=== PATIENT | female | born 1945 | race Asian ===

== ENCOUNTER 2018-08-03 09:13 | Day surgery (SDC) | payer OTHER, MEDICARE ==
[2018-08-02 13:51] VITALS: BMI 26.2
[2018-08-03 10:27] VITALS: TEMP 97.9
[2018-08-03 12:36] VITALS: BP 146/43; PULSE 59
== END 2018-08-03 11:30 | disposition home or self-care (01) ==
LOC: JASU-ENDO 09:13
PROVIDERS: ATTEND Internal Medicine Gastroenterology
PROC: 0DJD8ZZ Inspection of Lower Intestinal Tract, Via Natural or Artificial Opening Endoscopic (ICD-10-PCS; principal; 2018-08-03 10:00)
DX: Z12.11 Encounter for screening for malignant neoplasm of colon (principal); Z86.010 Personal history of colon polyps; K64.8 Other hemorrhoids

== ENCOUNTER 2019-01-02 01:59 | Emergency (ER) | payer OTHER, MEDICARE ==
[2019-01-02 02:39] VITALS: BMI 27.1
--- NOTE | 2019-01-02 02:39 | PDOC ---
History of Present Illness - History of Present Illness Initial Comments: 01/02/19 02:46 Ms. Osborne is a 73 yo female w/ pmh of HTN, HLD, hypothyroidism, IDDM, current UTI (taking backtrim as of 12/27/18), prior heart arrythmia (w/ pacemaker), not on AC who presents for evaluation of L shoulder pain. Patient was rolling over in bed to check the time and did not realized how close she was to the bed. Fell to the bed and landed on her L shoulder. Denies any head injury or LOC. The patient denies chest pain, shortness of breath, headache and dizziness. Denies fever, chills, nausea, vomit, diarrhea and constipation. Denies dysuria, frequency, urgency and hematuria. <Alexandre Treadwell - Last Filed: 01/02/19 07:19> <Evin Dominguez - Last Filed: 01/02/19 09:14> - General Chief Complaint: Pain, Acute Stated Complaint: FALL/PAIN,LT SIDE Time Seen by Provider: 01/02/19 02:38 Past History - Past Medical History Anemia: No Asthma: No Cancer: No Cardiac Disorders: Yes (CT 2006,ASHD) CVA: No COPD: No CHF: No Dementia: No Diabetes: Yes (NIDDM) GI Disorders: Yes (GERD,POSSIBLE WOODS'S) Disorders: No HTN: Yes Hypercholesterolemia: Yes Liver Disease: No Seizures: No Thyroid Disease: Yes (HYPOTHYROIDISM) - Surgical History Abdominal Surgery: No Appendectomy: No Cardiac Surgery: Yes (CABG-2006) Cholecystectomy: No Lung Surgery: No Neurologic Surgery: No Orthopedic Surgery: No - Suicide/Smoking/Psychosocial Hx Smoking History: Never smoked Have you smoked in the past 12 months: No Hx Alcohol Use: No Drug/Substance Use Hx: No Substance Use Type: None Hx Substance Use Treatment: No <Alexandre Treadwell - Last Filed: 01/02/19 07:19> <Evin Dominguez - Last Filed: 01/02/19 09:14> - Past Medical History Allergies/Adverse Reactions: Allergies Allergy/AdvReac Type Severity Reaction Status Date / Time No Known Allergies Allergy Verified 01/02/19 02:39 Home Medications: Ambulatory Orders Amlodipine Besylate [Norvasc -] 5 mg PO DAILY 03/01/13 Aspirin [ASA -] 81 mg PO DAILY 11/23/12 Atorvastatin Ca [Lipitor] 20 mg PO HS 11/23/12 Carvedilol [Coreg] 25 mg PO DAILY 11/23/12 Levothyroxine [Synthroid -] 50 mcg PO DAILY 11/23/12 Losartan/Hydrochlorothiazide [Losartan-Hctz 100-25 mg Tab] 1 each PO DAILY 11/23 Lysine [l-Lysine] 500 mg PO DAILY 11/23/12 Multivitamin [Multivitamins] 1 each PO DAILY 11/23/12 Vit C/Echin Purp/Herb11 [Vitamin C-Echinacea 500 mg Tab] 500 mg PO DAILY Cyanocobalamin [Vitamin B12 -] 1,000 mcg PO DAILY 08/02/18 Glucosa Renee 2Kcl/Chondroitin Renee [Glucosamine & Chondroitin Cap] 1 each PO BID 05/12 Insulin Glargine,Hum.rec.anlog [Lantus (10mL VIAL) -] 22 units SQ DAILY Loratadine [Claritin] 1 tab PO DAILY 08/02/18 Magnesium Glycinate [Magnesium Bisglycinate Chelate] 43 mg PO DAILY 08/02/18 Ranitidine [Zantac -] 150 mg PO BID 08/02/18 metFORMIN HCL [Metformin ER Osmotic] 1,000 mg PO BID 08/02/18 Fluticasone Prop 0.05% Nasal [Flonase -] 1 - 2 spray NS DAILY 08/03/18 Losartan/Hydrochlorothiazide [Losartan-Hctz 100-25 mg Tab] 1 tab PO DAILY Tramadol HCl 50 mg PO BID #14 tablet MDD 3 01/02/19 Review of Systems - Review of Systems Comments:: 01/02/19 03:40 GENERAL/CONSTITUTIONAL: No fever or chills. No weakness. HEAD, EYES, EARS, NOSE AND THROAT: No change in vision. No ear pain or discharge. No sore throat. CARDIOVASCULAR: No chest pain or shortness of breath RESPIRATORY: No cough, wheezing, or hemoptysis. GASTROINTESTINAL: No nausea, vomiting, diarrhea or constipation. GENITOURINARY: No dysuria, frequency, or change in urination. MUSCULOSKELETAL: +L shoulder pain s/p fall SKIN: No rash NEUROLOGIC: No headache, vertigo, loss of consciousness, or change in strength/ sensation. ENDOCRINE: No increased thirst. No abnormal weight change HEMATOLOGIC/LYMPHATIC: No anemia, easy bleeding, or history of blood clots. ALLERGIC/IMMUNOLOGIC: No hives or skin allergy. <Alexandre Treadwell - Last Filed: 01/02/19 07:19> *Physical Exam - Physical Exam Comments: 01/02/19 03:40 GENERAL: Awake, alert, and fully oriented, in no acute distress HEAD: No signs of trauma, normocephalic, atraumatic EYES: PERRLA, EOMI, sclera anicteric, conjunctiva clear ENT: Auricles normal inspection, hearing grossly normal, nares patent, oropharynx clear without exudates. Moist mucosa NECK: Normal ROM, supple, no lymphadenopathy, JVD, or masses LUNGS: No distress, speaks full sentences, clear to auscultation bilaterally HEART: Regular rate and rhythm, normal S1 and S2, no murmurs, rubs or gallops, peripheral pulses normal and equal bilaterally. ABDOMEN: Soft, nontender, normoactive bowel sounds. No guarding, no rebound. No masses EXTREMITIES: +L shoulder TTP. Obvious L shoulder dislocation. Neurovascularly intact. NEUROLOGICAL: Cranial nerves II through XII grossly intact. Normal speech, normal gait, no focal sensorimotor deficits SKIN: Warm, Dry, normal turgor, no rashes or lesions noted. <Alexandre Treadwell - Last Filed: 01/02/19 07:19> - Vital Signs Last Vital Signs Temp Pulse Resp BP Pulse Ox 98.6 F 65 16 135/63 97 01/02/19 07:21 01/02/19 07:21 01/02/19 07:21 01/02/19 07:21 01/02/19 07:21 <Evin Dominguez - Last Filed: 01/02/19 09:14> ED Treatment Course - LABORATORY CBC & Chemistry Diagram: 01/02/19 03:38 01/02/19 05:48 <Alexandre Treadwell - Last Filed: 01/02/19 07:19> - LABORATORY CBC & Chemistry Diagram: 01/02/19 03:38 01/02/19 07:14 - ADDITIONAL ORDERS Additional order review: Laboratory Results 01/02/19 01/02/19 01/02/19 07:14 05:48 03:38 PT with INR INR PTT (Actin FS) Sodium 129 L 128 L Potassium 4.8 4.3 Chloride 96 L 96 L Carbon Dioxide 28 25 Anion Gap 5 L 7 L BUN 11 13 Creatinine 0.5 L 0.5 L Creat Clearance w eGFR 121.28 121.28 Random Glucose 177 H 170 H Calcium 8.0 L 7.9 L Total Bilirubin AST ALT Alkaline Phosphatase Total Protein Albumin Blood Type A POSITIVE Antibody Screen Negative 01/02/19 01/02/19 03:38 03:38 PT with INR 12.30 INR 1.04 PTT (Actin FS) 33.1 Sodium 148 H Potassium 5.5 H Chloride 108 H Carbon Dioxide 28 Anion Gap 13 BUN 13 Creatinine 0.6 Creat Clearance w eGFR 98.27 Random Glucose 174 H Calcium 8.2 L Total Bilirubin 0.3 AST 29 ALT 39 Alkaline Phosphatase 71 Total Protein 6.7 Albumin 3.6 Blood Type Antibody Screen 01/02/19 03:38 RBC 3.88 MCV 91.1 MCHC 33.5 RDW 14.3 MPV 8.6 Neutrophils % 67.1 Lymphocytes % 14.5 Monocytes % 7.6 Eosinophils % 9.6 H Basophils % 1.2 - Medications Given in the ED: ED Medications Discontinued Medications Generic Name Dose Route Start Last Admin Trade Name Freq PRN Reason Stop Dose Admin Acetaminophen 975 mg 01/02/19 02:49 01/02/19 02:53 Tylenol - PO 01/02/19 02:50 975 mg ONCE ONE Administration Sodium Chloride 1,000 mls @ 1,000 mls/hr 01/02/19 03:39 01/02/19 03:45 Normal Saline - IV 01/02/19 04:38 1,000 mls/hr ASDIR STA Administration Morphine Sulfate 4 mg 01/02/19 03:37 01/02/19 03:43 Morphine Injection - IVPUSH 01/02/19 03:38 4 mg ONCE ONE Administration Ondansetron HCl 4 mg 01/02/19 03:37 01/02/19 03:43 Zofran Injection IVPUSH 01/02/19 03:38 4 mg ONCE ONE Administration Oxycodone/Acetaminophen 1 combo 01/02/19 02:43 01/02/19 02:53 Percocet 5/325 - PO 01/02/19 02:44 Not Given ONCE ONE <Evin Dominguez - Last Filed: 01/02/19 09:14> Medical Decision Making - Medical Decision Making 01/02/19 04:25 Ms. Osborne is a 73 yo female w/ pmh as described who presents for evaluation of L shoulder pain. Patient noted to have fracture of surgical neck of L humerus on XR evaluation. Discussed patient with ortho PA who evaluated films and believes patient safe for discharge and outpatient evaluation on Monday. Patient pain controlled and medication sent to pharmacy for pain control. Patient laboratory evaluation significant for potassium change from 5.5 on initial labs to 4.3, and Sodium change from 148 to 128. Will repeat BMP for clarification of laboratory changes. 01/02/19 07:19 Patient signed out to Dr. Dominguez for further evaluation. Laboratory Results - last 24 hr 01/02/19 01/02/19 01/02/19 03:38 03:38 03:38 WBC 11.7 H RBC 3.88 Hgb 11.9 Hct 35.3 MCV 91.1 MCH 30.6 MCHC 33.5 RDW 14.3 Plt Count 204 MPV 8.6 Absolute Neuts (auto) 7.8 Neutrophils % 67.1 Lymphocytes % 14.5 Monocytes % 7.6 Eosinophils % 9.6 H Basophils % 1.2 Nucleated RBC % 0 PT with INR 12.30 INR 1.04 PTT (Actin FS) 33.1 Sodium 148 H Potassium 5.5 H Chloride 108 H Carbon Dioxide 28 Anion Gap 13 BUN 13 Creatinine 0.6 Creat Clearance w eGFR 98.27 Random Glucose 174 H Calcium 8.2 L Total Bilirubin 0.3 AST 29 ALT 39 Alkaline Phosphatase 71 Total Protein 6.7 Albumin 3.6 Blood Type Antibody Screen 01/02/19 01/02/19 03:38 05:48 WBC RBC Hgb Hct MCV MCH MCHC RDW Plt Count MPV Absolute Neuts (auto) Neutrophils % Lymphocytes % Monocytes % Eosinophils % Basophils % Nucleated RBC % PT with INR INR PTT (Actin FS) Sodium 128 L Potassium 4.3 Chloride 96 L Carbon Dioxide 25 Anion Gap 7 L BUN 13 Creatinine 0.5 L Creat Clearance w eGFR 121.28 Random Glucose 170 H Calcium 7.9 L Total Bilirubin AST ALT Alkaline Phosphatase Total Protein Albumin Blood Type A POSITIVE Antibody Screen Negative <Alexandre Treadwell - Last Filed: 01/02/19 07:19> - Medical Decision Making Patient endorsed to me by Dr. Stephens to follow-up CMP. Repeat CMP shows moderate hyponatremia. the patient reports she has a history of and is likely related to hydrochlorothiazide therapy and large intake of water. Discussed the risk and benefit of tramadol therapy for pain. Patient's family and patient informed. They agree its preferable to NSAIDs or Percocet. I contacted [facility] and the previously dispense Percocet prescription will be canceled. Patient will take acetaminophen for mild pain and tramadol for breakthrough pain. 01/02/19 09:06 <Evin Dominguez - Last Filed: 01/02/19 09:14> *DC/Admit/Observation/Transfer <Alexandre Treadwell - Last Filed: 01/02/19 07:19> <Evin Dominguez - Last Filed: 01/02/19 09:14> Diagnosis at time of Disposition: Hyponatremia Humeral fracture Qualifiers: Encounter type: initial encounter Humerus Location: surgical neck Fracture type : closed Fracture morphology: unspecified fracture morphology Fracture alignment : displaced Laterality: left Qualified Code(s): S42.212A - Unspecified displaced fracture of surgical neck of left humerus, initial encounter for closed fracture - Discharge Dispostion Disposition: HOME Condition at time of disposition: Stable - Prescriptions Prescriptions: Oxycodone HCl/Acetaminophen [Percocet 5-325 mg Tablet] 1 tab PO Q6H PRN #12 tablet MDD 4 tabs PRN Reason: Pain - Referrals Referrals: Sarthak Tran MD [Primary Care Provider] - Toney Pearl MD [Staff Physician] - - Patient Instructions Printed Discharge Instructions: How to Use a Sling, DI for Humeral Fracture Additional Instructions: You were evaluated today in the ER and found to have a fracture of your left humerus. We have sent medications to your pharmacy for pain control and you can follow-up outpatient with Dr. Pearl on Monday as discussed. Take all medications as proscribed. Please return to ER if any fever, chills, pain not controllable with proscribed medications, or other concerning symptoms. - Post Discharge Activity
[2019-01-02] MEDS ORDERED: ACETAMINOPHEN 325 MG TABLET (FP) ONE ×2 (02:49→02:50)
[2019-01-02] MEDS ORDERED: ACETAMINOPHEN 500 MG TABLET (FP) PO ONE (02:49)
--- NOTE | 2019-01-02 02:52 | PDOC ---
Attending Attestation - Resident Resident Name: Alexandre Treadwell - ED Attending Attestation I have performed the following: I have examined & evaluated the patient, The case was reviewed & discussed with the resident, I agree w/resident's findings & plan, Exceptions are as noted - HPI HPI: 01/02/19 05:12 The patient is a 73 year old female with a PMH of HTN, HLD, hypothyroidism, IDDM , current UTI (taking bactrim as of 12/27/18), prior heart arrhythmia (w/ pacemaker) who presents s/p fall prior to arrival. Patient states she was rolling over to check the time and subsequently fell off the bed. Patient sustained the fall on her left side and is now complaining of left shoulder pain. She denies any head trauma or loss of consciousness. Not currently on any anticoagulants. Was able to ambulate afterwards, complains only of L shoulder pain. The patient denies chest pain, shortness of breath, headache and dizziness. Denies fever, chills, nausea, vomit, diarrhea and constipation. Denies dysuria, frequency, urgency and hematuria. Allergies: NKA Past surgical history: s/p pacemaker Social history: No reported alcohol, drug or cigarette use. - Physicial Exam PE: 01/02/19 05:12 GENERAL: Awake, alert, and fully oriented, in no acute distress HEAD: No signs of trauma EYES: PERRLA, EOMI, sclera anicteric, conjunctiva clear ENT: Oropharynx clear without exudates. Moist mucosa NECK: Normal ROM, supple, no lymphadenopathy, JVD, or masses LUNGS: Breath sounds equal, clear to auscultation bilaterally. No wheezes, and no crackles HEART: Regular rate and rhythm, normal S1 and S2, no murmurs, rubs or gallops ABDOMEN: Soft, nontender, normoactive bowel sounds. No guarding, no rebound. No masses EXTREMITIES: L proximal extremity with gross deformity. Distal LUE extremity with normal strength and sensation. 2+ pulse. Able to give okay, thumbs up signs. Able to oppose thumb. Able to extend, flex and abduct all fingers. BACK: no midline cervical, thoracic, or lumbar ttp NEUROLOGICAL: Normal speech, cranial nerves intact. SKIN: Warm, Dry, normal turgor, no rashes or lesions noted. - Medical Decision Making 01/02/19 05:16 73yo F presents to the ED with L shoulder pain after a fall, found to have proximal humerus fracture. CECILY PALCAIOS distally Case discussed with Dr. Pearl, pt can f/u as an outpt on Monday, can be placed in a sling for now. Pain well controlled Labs with elevated potassium, plan to rpt after liter of fluids
[2019-01-02] MEDS ORDERED: ONDANSETRON 4 MG/2 ML VIAL IVPUSH ONE (03:37)
[2019-01-02] MEDS ORDERED: morphine CARPU-JECT 4 MG/1 ML DISP.SYRIN IVPUSH ONE (03:37)
[2019-01-02] MEDS ORDERED: ONDANSETRON 4 MG/2 ML VIAL ONE (03:39)
[2019-01-02] MEDS ORDERED: SODIUM CHLORIDE 1,000 ML IV STA (03:39)
[2019-01-02] MEDS ORDERED: morphine SULFATE 4 MG/ML VIAL ONE (03:39)
[2019-01-02 03:46] LABS: BASO % 1.2 % (0-2.0); EOS % 9.6 % (0-4.5); HEMATOCRIT 35.3 % (32.4-45.2); HEMOGLOBIN 11.9 GM/dL (10.7-15.3); LYMPH % 14.5 % (8-40); MCH 30.6 pg (25.7-33.7); MCHC 33.5 g/dl (32.0-36.0); MEAN CELL VOLUME 91.1 fl (80-96); MEAN PLT VOLUME 8.6 fl (7.5-11.1); MONO % 7.6 % (3.8-10.2); NEUT % 67.1 % (42.8-82.8); PLATELET COUNT 204 K/MM3 (134-434); RBC 3.88 M/mm3 (3.60-5.2); RDW 14.3 % (11.6-15.6); WHITE BLOOD COUNT 11.7 K/mm3 (4.0-10.0)
[2019-01-02 03:59] LABS: INR 1.04 (0.83-1.09); PROTHROMBIN TIME (PATIENT) 12.3 SEC (9.7-13.0)
[2019-01-02 04:02] LABS: ACTIVATED PTT 33.1 SECONDS (25.2-36.5)
[2019-01-02 04:15] LABS: ALBUMIN 3.6 g/dl (3.4-5.0); ALK PHOS 71 U/L (45-117); ANION GAP 13 MMOL/L (8-16); BILIRUBIN,TOTAL 0.3 mg/dL (0.2-1); BLOOD UREA NITROGEN 13 mg/dL (7-18); CALCIUM 8.2 mg/dL (8.5-10.1); CHLORIDE 108 mmol/L (98-107); CO2 28 mmol/L (21-32); CREATININE 0.6 mg/dL (0.55-1.3); GLUCOSE,RANDOM 174 mg/dL (74-106); POTASSIUM 5.5 mmol/L (3.5-5.1); SGOT/AST 29 U/L (15-37); SGPT/ALT 39 U/L (13-61); SODIUM 148 mmol/L (136-145); TOT PROT 6.7 g/dl (6.4-8.2)
[2019-01-02 06:31] LABS: ANION GAP 7 MMOL/L (8-16); BLOOD UREA NITROGEN 13 mg/dL (7-18); CALCIUM 7.9 mg/dL (8.5-10.1); CHLORIDE 96 mmol/L (98-107); CO2 25 mmol/L (21-32); CREATININE 0.5 mg/dL (0.55-1.3); GLUCOSE,RANDOM 170 mg/dL (74-106); POTASSIUM 4.3 mmol/L (3.5-5.1); SODIUM 128 mmol/L (136-145)
[2019-01-02 07:22] VITALS: BP 135/63; PULSE 65; TEMP 98.6
[2019-01-02 08:10] LABS: ANION GAP 5 MMOL/L (8-16); BLOOD UREA NITROGEN 11 mg/dL (7-18); CHLORIDE 96 mmol/L (98-107); CO2 28 mmol/L (21-32); CREATININE 0.5 mg/dL (0.55-1.3); GLUCOSE,RANDOM 177 mg/dL (74-106); POTASSIUM 4.8 mmol/L (3.5-5.1); SODIUM 129 mmol/L (136-145)
[2019-01-02] MEDS ORDERED: traMADol HCL 50 MG TABLET ONE (09:34)
[2019-01-02] MEDS ORDERED: traMADol HCL 50 MG TABLET PO ONE (09:37)
== END 2019-01-02 09:55 | disposition home or self-care (01) ==
LOC: JER 01:59
PROC: 3E033GC Introduction of Other Therapeutic Substance into Peripheral Vein, Percutaneous Approach (ICD-10-PCS; principal; 2019-01-02)
PROC: 3E0337Z Introduction of Electrolytic and Water Balance Substance into Peripheral Vein, Percutaneous Approach (ICD-10-PCS; 2019-01-02)
PROC: 3E033NZ Introduction of Analgesics, Hypnotics, Sedatives into Peripheral Vein, Percutaneous Approach (ICD-10-PCS; 2019-01-02)
DX: E87.1 Hypo-osmolality and hyponatremia (principal); S42.212A Unspecified displaced fracture of surgical neck of left humerus, initial encounter for closed fracture; W06.XXXA Fall from bed, initial encounter; Y93.89 Activity, other specified; Y92.003 Bedroom of unspecified non-institutional (private) residence as the place of occurrence of the external cause; I25.2 Old myocardial infarction; E11.9 Type 2 diabetes mellitus without complications; I10 Essential (primary) hypertension; E78.00 Pure hypercholesterolemia, unspecified; E03.9 Hypothyroidism, unspecified; K21.9 Gastro-esophageal reflux disease without esophagitis
CPT/HCPCS: 36415; 71045-TC-FY; 73030-TC-LT-FY; 73060-TC-LT-FY; 80048; 80053; 85025; 85610; 85730; 86850; 86900; 86901; 99284-25; J7030

== ENCOUNTER 2019-03-27 14:11 | Emergency (ER) | payer OTHER, MEDICARE ==
[2019-03-27 14:21] VITALS: BMI 25.7
--- NOTE | 2019-03-27 14:44 | PDOC ---
History of Present Illness - General Chief Complaint: Pain Stated Complaint: FACIAL PAIN SENT BY ENT FOR CT SCAN - History of Present Illness Initial Comments: Jarvis Osborne is a 73yo woman with a PMH of HTN, HLD, NIDDM, hypothyroidism, chronic sinusitis, TMJ pain who presents with right facial pain and swelling for 4 days. She states that the pain started on Monday, but she initially thought it was her typical TMJ pain. She applied ice that night, and the pain mostly resolved. However, it returned and was just as severe on Monday. She was unable to see a doctor for several days as she did not want to take off work, but she went to urgent care for evaluation this morning because she was unable to open her mouth enough to eat breakfast due to the pain. At urgent care, she was sent to ENT. She was seen immediately by Dr Cuenca ([facility]), and she was referred to the ED for a CT scan. He was able to complete a nasal endoscopy and reports that she had questionable swelling around her upper right molars, but there was nothing grossly abnormal on exam. Ms Osborne says that she was concerned she might have strep throat or an ear infection, so she took 2 tablets of azithromycin that she had at home (from [facility]) yesterday. Her pain has not become worse over the past few days, but it is a constant 8/10. She has increased pain if you touch near her ear or if she tries to open her mouth more than ~1cm. She denies any fevers, chills, sinus pressure, increased post-nasal drip, toothache, cough, or difficulty breathing. Past History - Past Medical History Allergies/Adverse Reactions: Allergies Allergy/AdvReac Type Severity Reaction Status Date / Time No Known Allergies Allergy Verified 03/27/19 14:42 Home Medications: Ambulatory Orders Amlodipine Besylate [Norvasc -] 5 mg PO DAILY 11/23/12 Aspirin [ASA -] 81 mg PO DAILY 11/23/12 Atorvastatin Ca [Lipitor] 20 mg PO HS 11/23/12 Carvedilol [Coreg] 25 mg PO DAILY 11/23/12 Levothyroxine [Synthroid -] 50 mcg PO DAILY 11/23/12 Cyanocobalamin [Vitamin B12 -] 1,000 mcg PO DAILY 08/02/18 Insulin Glargine,Hum.rec.anlog [Lantus (10mL VIAL) -] 22 units SQ DAILY Ranitidine [Zantac -] 150 mg PO BID 08/02/18 metFORMIN HCL [Metformin ER Osmotic] 1,000 mg PO BID 08/02/18 Fluticasone Prop 0.05% Nasal [Flonase -] 1 - 2 spray NS DAILY 08/03/18 Losartan/Hydrochlorothiazide [Losartan-Hctz 100-25 mg Tab] 1 tab PO DAILY Hydroxyzine HCl 10 mg PO DAILY 03/27/19 Meloxicam 15 mg PO DAILY PRN #14 tablet 03/27/19 Anemia: No Asthma: No Cancer: No Cardiac Disorders: Yes (SC 2006,ASHD) CVA: No COPD: No CHF: No Dementia: No Diabetes: Yes (NIDDM) GI Disorders: Yes (GERD,POSSIBLE WOODS'S) Disorders: No HTN: Yes Hypercholesterolemia: Yes Liver Disease: No Seizures: No Thyroid Disease: Yes (HYPOTHYROIDISM) - Surgical History Abdominal Surgery: No Appendectomy: No Cardiac Surgery: Yes (CABG-2006) Cholecystectomy: No Lung Surgery: No Neurologic Surgery: No Orthopedic Surgery: No - Immunization History Immunization Up to Date: Yes - Suicide/Smoking/Psychosocial Hx Smoking History: Never smoked Have you smoked in the past 12 months: No Information on smoking cessation initiated: No Hx Alcohol Use: No Drug/Substance Use Hx: No Substance Use Type: None Hx Substance Use Treatment: No Review of Systems - Review of Systems Comments:: General: No fevers, no chills, no weight or appetite change, no malaise HEENT: See HPI. No changes in vision, no changes in hearing, no congestion CV: No chest pain, no palpitations, no LE edema Pulm: No SOB, no cough, no wheezing GI: No nausea or vomiting, no change in bowel habits, no melena : No frequency, no urgency, no dysuria Musc: No back pain, no joint swelling, no recent injury Skin: No rash, no lesions, no erythema Endo: No excessive thirst, no heat/cold intolerance Heme: No unusual bruising or bleeding, no swollen glands Neuro: No syncope, no numbness/tingling, no focal weakness Vasc: No claudication Psych: No recent change in mood, no SI or HI *Physical Exam - Vital Signs Last Vital Signs Temp Pulse Resp BP Pulse Ox 98.1 F 78 18 144/66 97 03/27/19 14:19 03/27/19 14:19 03/27/19 14:19 03/27/19 14:19 03/27/19 14:19 - Physical Exam Comments: General: Comfortable, no acute distress HEENT: PERRL, EOMI, voice normal. Right lateral face visibly swollen, TTP. No warmth, no crepitus, no fluctuance. Could not examine oral cavity or pharynx as pt can only open mouth 1-1.5cm. Cards: RRR, no murmur appreciated Pulm: Comfortable on room air, clear to auscultation bilaterally Abd: Soft, nontender, nondistended Ext: Atraumatic. No LE edema. ROM intact Vasc: Extremities WWP Skin: Normal color, no rashes or lesions Neuro: A&Ox3, CN grossly intact, normal speech, motor/sensory grossly intact and symmetric Psych: Mood appropriate to situation ED Treatment Course - LABORATORY CBC & Chemistry Diagram: 03/27/19 15:00 03/27/19 15:00 Medical Decision Making - Medical Decision Making 03/27/19 15:35 Jarvis Osborne is a 73yo woman with a PMH of HTN, HLD, NIDDM, hypothyroidism, chronic sinusitis, TMJ pain who was sent to the ED from ENT due to right facial pain and swelling for 4 days, now with inability to open her mouth and difficulty eating. She denies any fevers/chills, congestion, tooth pain or other associated symptoms. - Notable swelling in right face, no fluctuance or crepitus suggesting parotidis - Spoke to Dr Cuenca. States that nasal scope did not show any abnormalities in pharynx, mouth. States he feels that the problem could potentially be an underlying dental infection - Will CT face to evaluate for focal infection, occult fracture or other abnormalities - CBC, CMP prior to CT 03/27/19 16:33 - Labs completed. No significant abnormalities. - Cr 0.5, OK for IV contrast. Will take to CT 03/27/19 19:05 - CT w/ subcutaneous edema but no localized infection, no fracture, no abscess. - Updated pt regarding results. She reports continued severe pain. Will give toradol - Call placed to ENT for update 03/27/19 19:46 - Spoke to Dr Cuenca. Recommending dental follow up for TMJ problems. - Updated pt and her daughter. Requesting meloxicam for home. Discussed home care, follow up, return precautions. Both state understanding and agreement iwth the plan. Discussed with Juana Stephens and Mayra. Sharonda Wendy PGY2 *DC/Admit/Observation/Transfer Diagnosis at time of Disposition: Right facial swelling - Discharge Dispostion Disposition: HOME Condition at time of disposition: Stable Decision to Admit order: No - Prescriptions Prescriptions: Meloxicam 15 mg PO DAILY PRN #14 tablet PRN Reason: Pain - Referrals Referrals: Sarthak Tran MD [Primary Care Provider] - - Patient Instructions Printed Discharge Instructions: Temporomandibular Disorder Additional Instructions: Discharge Instructions: You were seen in the emergency department for facial swelling and pain. You had a CT scan that did not show any localized infection or fracture. Your pain may be due to temporomandubilar joint (TMJ) dysfunction. Home Care and Follow Up: - You have been prescribed meloxicam to take for pain. Take as prescribed. - You may alternate this medication with acetaminophen 650-1000mg every 6 hours if you need to for continued pain. - It is strongly recommended that you take meloxicam with food to help prevent stomach irritation. - Try using an ice pack for 20 minutes every hour or a heating pad for additional pain control. These should NOT be used over the lidocaine patch, but you may place them over the areas of pain while the patch is off. - Do not stop moving around. As much as you can tolerate, continue to do light exercise and stretching exercises. Increase your activity level as much as you can tolerate daily. - Please follow up with your dentist as soon as possible for additional evaluation. You should also speak to your dentist for a referral to a specialist for your TMJ dysfunction. - See your regular doctor within the next week for follow up - Seek immediate medical care if you have significant worsening of your symptoms , you are unable to open your mouth enough to eat, you develop fever to 101F, your face becomes red and director of vocational training addition to the swelling, or you have any other medical emergency. - Post Discharge Activity
[2019-03-27 15:23] LABS: BASO % 0.7 % (0-2.0); EOS % 3.3 % (0-4.5); HEMATOCRIT 37.1 % (32.4-45.2); HEMOGLOBIN 12.3 GM/dL (10.7-15.3); LYMPH % 18.3 % (8-40); MCH 29.5 pg (25.7-33.7); MCHC 33.3 g/dl (32.0-36.0); MEAN CELL VOLUME 88.5 fl (80-96); MEAN PLT VOLUME 8.9 fl (7.5-11.1); MONO % 10.3 % (3.8-10.2); NEUT % 67.4 % (42.8-82.8); PLATELET COUNT 205 K/MM3 (134-434); RBC 4.19 M/mm3 (3.60-5.2); RDW 13.8 % (11.6-15.6); WHITE BLOOD COUNT 10.3 K/mm3 (4.0-10.0)
[2019-03-27] MEDS ORDERED: ACETAMINOPHEN 1000 MG/100 ML VIAL (NON FORMULARY) IVPB ONE (15:23)
[2019-03-27] MEDS ORDERED: ACETAMINOPHEN INJECTION 100 ML IVPB ONE (15:25)
[2019-03-27 16:08] LABS: ALBUMIN 3.4 g/dl (3.4-5.0); BILIRUBIN,TOTAL 0.3 mg/dL (0.2-1); BLOOD UREA NITROGEN 10.3 mg/dL (7-18); CALCIUM 9.1 mg/dL (8.5-10.1); CREATININE 0.5 mg/dL (0.55-1.3); POTASSIUM 4.2 mmol/L (3.5-5.1)
--- NOTE | 2019-03-27 17:41 | PDOC ---
Documentation entered by Vonda John SCRIBE, acting as scribe for Tu Stephens MD. Tu Stephens MD: This documentation has been prepared by the Alvaro farrar Sammi, SCRIBE, under my direction and personally reviewed by me in its entirety. I confirm that the documentation accurately reflects all work, treatment, procedures, and medical decision making performed by me. Attending Attestation - Resident Resident Name: Sharonda Nguyen - ED Attending Attestation I have performed the following: I have examined & evaluated the patient, The case was reviewed & discussed with the resident, I agree w/resident's findings & plan, Exceptions are as noted - HPI HPI: 03/27/19 16:05 The patient is a 73 year old female who presents to the emergency department for evaluation of 5 days of progressively worsening right jaw pain and swelling. The patient states she was seen by her PCP on Monday for extreme itching and was prescribed hydroxyzine. She reports on Monday after one day on the hydroxyzine her right face started to swell and she felt a dull pain in her R jaw. She notes stopping the medication on Monday as she relates her symptoms to the hydroxazine. The patient was evaluated in urgent care today where she was sent to Dr. Calabrese office (ENT), who examined the patient ( checked teeth, ears), then sent the patient to the ED for CT facial bones and soft tissue. The patient reports pain when she opens her mouth and states eating solid foods has been difficult. The patient also notes a recent fall about 3 weeks ago during a physical therapy session. She states she was doing a pulling exercise when someone opened a door where the equipment was connected to, causing her to fall back hitting her head. No LOC at the time and no jaw injuries at the time. The patient denies chest pain, shortness of breath, headache, focal weakness/ numbness and dizziness. Denies fever, chills, nausea, vomiting, diarrhea and constipation. Denies dysuria, frequency, urgency and hematuria. Allergies: NKA PCP:[facility] - Physicial Exam PE: 03/27/19 16:07 GENERAL: Awake, alert, and fully oriented, in no acute distress HEAD: No signs of trauma. No temporal ttp EYES: PERRLA, EOMI, sclera anicteric, conjunctiva clear ENT: Auricles normal inspection, hearing grossly normal, nares patent, +ttp to R TMJ and posterior mandible, limited oral apeture 2/2 pain. +pain with occlusion of teeth. No ttp of teeth, no intraoral abscess NECK: Normal ROM, supple, no lymphadenopathy, JVD, or masses LUNGS: Breath sounds equal, clear to auscultation bilaterally. No wheezes, and no crackles HEART: Regular rate and rhythm, normal S1 and S2, no murmurs, rubs or gallops ABDOMEN: Soft, nontender, normoactive bowel sounds. No guarding, no rebound. No masses EXTREMITIES: Normal range of motion, no edema. No clubbing or cyanosis. No cords , erythema, or tenderness BACK: No midline spinal tenderness in cervical/thoracic/lumbar region NEUROLOGICAL: Normal speech, cranial nerves intact, equal strength and sensation b/l SKIN: Warm, Dry, normal turgor, no rashes or lesions noted. - Medical Decision Making 03/27/19 17:39 73yo F presents to the ED with 5 days of atraumatic R TMJ pain Pt evaluated by ENT, sent to ED for CT facial bones and soft tissue with contrast Labs with mild hyponatremia (chronic for pt), otherwise wnl CT pending Pain well controlled with tylenol at this time 03/27/19 19:01 CT concerning for R TMJ. No abscess identified Case discussed with ENT Dr Cuenca who sent her in, has no further recommendations other than to f/u with him and a dentist for further TMJ evaluation Plan discussed with patient Pain better controlled with toradol She is able to drink and eat soft foods such as oatmeal Pt is clinically stable for DC home I discussed the physical exam findings, ancillary test results and final diagnoses with the patient. I answered all of the patient's questions. The patient was satisfied with the care received and felt comfortable with the discharge plan and treatment plan. The patient will call their primary care physician within 24 hours to arrange follow-up and will return to the Emergency Department with any new, persistent or worsening symptoms.
[2019-03-27] MEDS ORDERED: KETOROLAC TROMETHAMINE 30 MG/1 ML VIAL IVPUSH ONE (19:06)
[2019-03-27] MEDS ORDERED: KETOROLAC TROMETHAMINE 30 MG/1 ML VIAL ONE (19:15)
[2019-03-27 20:06] VITALS: BP 138/65; PULSE 66; TEMP 98.2
== END 2019-03-27 20:31 | disposition home or self-care (01) ==
LOC: JER 14:11
PROC: 3E033NZ Introduction of Analgesics, Hypnotics, Sedatives into Peripheral Vein, Percutaneous Approach (ICD-10-PCS; principal; 2019-03-27)
PROC: 3E0333Z Introduction of Anti-inflammatory into Peripheral Vein, Percutaneous Approach (ICD-10-PCS; 2019-03-27)
DX: G50.1 Atypical facial pain (principal); E11.9 Type 2 diabetes mellitus without complications; E03.9 Hypothyroidism, unspecified; E78.5 Hyperlipidemia, unspecified; I10 Essential (primary) hypertension
CPT/HCPCS: 36415; 70487-TC; 80053; 82962; 85025; 99283-25; J0131

== ENCOUNTER 2023-08-12 13:48 | Inpatient (IN) | payer OTHER, MEDICARE ==
[2023-08-12 14:03] VITALS: BMI 23.9
[2023-08-12] MEDS ORDERED: morphine CARPU-JECT 2 MG/1 ML DISP.SYRIN IVPUSH ONE ×2 (15:03→17:29)
[2023-08-12 15:44] LABS: BASO % 0.5 % (0-2.0); EOS % 1.3 % (0-4.5); HEMATOCRIT 39.2 % (32.4-45.2); HEMOGLOBIN 12.9 GM/dL (10.7-15.3); LYMPH % 13.9 % (8-40); MCH 28.7 pg (25.7-33.7); MCHC 32.9 g/dl (32.0-36.0); MEAN CELL VOLUME 87.3 fl (80-96); MEAN PLT VOLUME 8.4 fl (7.5-11.1); MONO % 6.4 % (3.8-10.2); NEUT % 77.9 % (42.8-82.8); PLATELET COUNT 285 10^3/uL (134-434); RBC 4.49 M/mm3 (3.60-5.2); RDW 13.6 % (11.6-15.6); WHITE BLOOD COUNT 14.7 K/mm3 (4.0-10.0)
[2023-08-12 16:14] LABS: CALCIUM 8.8 mg/dL (8.5-10.1)
[2023-08-12 16:15] LABS: ALBUMIN 3.4 g/dl (3.4-5.0); BLOOD UREA NITROGEN 11.9 mg/dL (7-18)
[2023-08-12 16:18] LABS: CREATININE 0.6 mg/dL (0.55-1.3)
[2023-08-12 16:19] LABS: BILIRUBIN,TOTAL 0.4 mg/dL (0.2-1)
[2023-08-12 16:20] LABS: TOT PROT 7.1 g/dl (6.4-8.2)
[2023-08-12 16:59] LABS: URINE APPEARANCE CLEAR; URINE BILIRUBIN NEGATIVE (NEGATIVE); URINE COLOR YELLOW; URINE GLUCOSE (UA) NEGATIVE (NEGATIVE); URINE KETONE NEGATIVE (NEGATIVE); URINE LEUK ESTERASE NEGATIVE (NEGATIVE); URINE NITRITE NEGATIVE (NEGATIVE); URINE PROTEIN NEGATIVE (NEGATIVE); URINE UROBILINOGEN 0.2 mg/dL (0.2-1.0)
[2023-08-12] MEDS ORDERED: morphine SULFATE 4 MG/ML VIAL IVPUSH PRN (18:17)
[2023-08-12] MEDS ORDERED: KETOROLAC TROMETHAMINE 30 MG/1 ML VIAL IM PRN (18:18)
[2023-08-12] MEDS ORDERED: FUROSEMIDE 40 MG TABLET (FP) PO ONE (18:20)
[2023-08-12] MEDS ORDERED: ALBUTEROL SO4 HFA INHALER IH PRN (18:22)
[2023-08-12] MEDS: ENOXAPARIN NA (PORCINE) 40 MG/0.4 ML DISP.SYRIN SQ SCH (19:07)
[2023-08-12] MEDS: DOCUSATE SODIUM 100 MG CAPSULE (FP) PO SCH ×2 (21:08→21:09)
[2023-08-12] MEDS: INSULIN SLIDING SCALE (NOVOLOG) 1 VIAL SQ SCH (21:08)
[2023-08-12] MEDS: ATORVASTATIN CA 40 MG TABLET (FP) PO SCH (21:08)
[2023-08-13] MEDS: LEVOTHYROXINE NA 50 MCG TABLET (FP) PO SCH (06:02)
[2023-08-13] MEDS: INSULIN SLIDING SCALE (NOVOLOG) 1 VIAL SQ SCH ×4 (06:02→22:09)
[2023-08-13] MEDS ORDERED: ACETAMINOPHEN 1000 MG/100 ML BAG IVPB ONE (06:51)
[2023-08-13] MEDS ORDERED: metFORMIN HCL 500 MG TABLET (FP) PO SCH (07:00)
[2023-08-13] MEDS ORDERED: CYCLOBENZAPRINE HCL 10 MG TABLET (FP) PO PRN (07:39)
[2023-08-13] MEDS ORDERED: oxyCODONE HCL 5 MG TABLET PO PRN (07:41)
[2023-08-13] MEDS ORDERED: traMADol HCL 50 MG TABLET PO PRN (07:41)
[2023-08-13] MEDS: ACETAMINOPHEN 500 MG TABLET (FP) PO SCH ×3 (08:30→23:35)
[2023-08-13] MEDS ORDERED: methylPREDNISolone 4 MG TABLET PO ONE (09:00)
[2023-08-13 09:24] LABS: POTASSIUM 4.2 mmol/L (3.5-5.1)
[2023-08-13] MEDS: LOSARTAN POTASSIUM 50 MG TABLET PO SCH (09:25)
[2023-08-13] MEDS: amLODIPine BESYLATE 10 MG TABLET (FP) PO SCH (09:25)
[2023-08-13] MEDS: DOCUSATE SODIUM 100 MG CAPSULE (FP) PO SCH ×2 (09:25→21:16)
[2023-08-13] MEDS: ASPIRIN 81 MG CHEWABLE TABLETS PO SCH (09:25)
[2023-08-13] MEDS: FAMOTIDINE 20 MG TABLET PO SCH (09:25)
[2023-08-13 09:26] LABS: BLOOD UREA NITROGEN 14.6 mg/dL (7-18)
[2023-08-13 09:28] LABS: CREATININE 0.6 mg/dL (0.55-1.3)
[2023-08-13] MEDS: ENOXAPARIN NA (PORCINE) 40 MG/0.4 ML DISP.SYRIN SQ SCH (09:34)
[2023-08-13] MEDS ORDERED: SODIUM CHLORIDE 1,000 ML IV SCH (09:45)
[2023-08-13] MEDS ORDERED: KETOROLAC TROMETHAMINE 30 MG/1 ML VIAL IM SCH (10:00)
[2023-08-13] MEDS ORDERED: amLODIPine BESYLATE 5 MG TABLET (FP) PO SCH (10:00)
[2023-08-13] MEDS ORDERED: HYDROCHLOROTHIAZIDE 25 MG TABLET (FP) PO SCH (10:00)
[2023-08-13] MEDS: LIDOCAINE 4% PATCH TP SCH ×2 (12:48→13:36)
[2023-08-13 16:38] LABS: POTASSIUM 4.8 mmol/L (3.5-5.1)
[2023-08-13 16:40] LABS: CALCIUM 9.1 mg/dL (8.5-10.1)
[2023-08-13 16:43] LABS: CREATININE 0.7 mg/dL (0.55-1.3)
[2023-08-13] MEDS: KETOROLAC TROMETHAMINE 30 MG/1 ML VIAL IVPUSH SCH (18:08)
[2023-08-13] MEDS: ATORVASTATIN CA 40 MG TABLET (FP) PO SCH (21:15)
[2023-08-13] MEDS: SODIUM CHLORIDE 1 GM TABLET PO SCH (21:15)
[2023-08-13] MEDS ORDERED: LIDOCAINE PATCH REMOVAL MC SCH ×2 (22:00)
[2023-08-13] MEDS ORDERED: INSULIN (LEVEMIR) 100 UNITS/ML UNITS SQ SCH (22:00)
[2023-08-14] MEDS: KETOROLAC TROMETHAMINE 30 MG/1 ML VIAL IVPUSH SCH ×2 (02:06→09:58)
[2023-08-14] MEDS: LEVOTHYROXINE NA 50 MCG TABLET (FP) PO SCH (06:22)
[2023-08-14] MEDS: INSULIN SLIDING SCALE (NOVOLOG) 1 VIAL SQ SCH ×2 (06:23→11:56)
[2023-08-14] MEDS ORDERED: INSULIN (LEVEMIR) 100 UNITS/ML UNITS SQ SCH (08:03)
[2023-08-14] MEDS ORDERED: methylPREDNISolone 4 MG TABLET PO ONE (09:00)
[2023-08-14] MEDS: ACETAMINOPHEN 500 MG TABLET (FP) PO SCH (09:18)
[2023-08-14] MEDS: FAMOTIDINE 20 MG TABLET PO SCH (09:19)
[2023-08-14] MEDS: amLODIPine BESYLATE 10 MG TABLET (FP) PO SCH (09:19)
[2023-08-14] MEDS: DOCUSATE SODIUM 100 MG CAPSULE (FP) PO SCH (09:19)
[2023-08-14] MEDS: ASPIRIN 81 MG CHEWABLE TABLETS PO SCH (09:19)
[2023-08-14] MEDS: LOSARTAN POTASSIUM 50 MG TABLET PO SCH (09:19)
[2023-08-14] MEDS: LIDOCAINE 4% PATCH TP SCH ×2 (09:21)
[2023-08-14] MEDS: ENOXAPARIN NA (PORCINE) 40 MG/0.4 ML DISP.SYRIN SQ SCH (09:22)
[2023-08-14] MEDS: SODIUM CHLORIDE 1 GM TABLET PO SCH (09:23)
[2023-08-14 09:42] LABS: BASO % 0.4 % (0-2.0); EOS % 1.1 % (0-4.5); HEMATOCRIT 41.3 % (32.4-45.2); HEMOGLOBIN 13.4 GM/dL (10.7-15.3); LYMPH % 24.3 % (8-40); MCH 28.5 pg (25.7-33.7); MCHC 32.4 g/dl (32.0-36.0); MEAN CELL VOLUME 87.9 fl (80-96); MEAN PLT VOLUME 8.5 fl (7.5-11.1); NEUT % 64.2 % (42.8-82.8); PLATELET COUNT 301 10^3/uL (134-434); RDW 13.8 % (11.6-15.6); WHITE BLOOD COUNT 13.1 K/mm3 (4.0-10.0)
[2023-08-14 09:58] LABS: POTASSIUM 4.3 mmol/L (3.5-5.1)
[2023-08-14 10:14] LABS: ALBUMIN 3.9 g/dl (3.4-5.0); BLOOD UREA NITROGEN 14.7 mg/dL (7-18)
[2023-08-14 10:16] LABS: MAGNESIUM 2.1 mg/dL (1.8-2.4)
[2023-08-14 10:18] LABS: CREATININE 0.5 mg/dL (0.55-1.3); PHOSPHOROUS 3.1 mg/dL (2.5-4.9)
[2023-08-14 10:19] LABS: TOT PROT 7.6 g/dl (6.4-8.2)
[2023-08-14 10:21] LABS: BILIRUBIN,TOTAL 0.5 mg/dL (0.2-1)
[2023-08-14 14:39] VITALS: BP 140/55; PULSE 86; RESP 18; TEMP 98.5
== END 2023-08-14 15:15 | disposition home health service (06) | DRG 641 ==
LOC: JER 13:48 → JERBED 17:40 → J5S 08-13 00:20
PROVIDERS: ADMIT Internal Medicine; ATTEND Internal Medicine
DX: E87.1 Hypo-osmolality and hyponatremia (principal); M54.9 Dorsalgia, unspecified; E11.9 Type 2 diabetes mellitus without complications; E03.9 Hypothyroidism, unspecified; E78.5 Hyperlipidemia, unspecified; I25.10 Atherosclerotic heart disease of native coronary artery without angina pectoris; Z95.1 Presence of aortocoronary bypass graft
CPT/HCPCS: 36415; 71046-TC-FY; 80048; 80053; 81003; 82533; 82550; 82553; 82962; 83735; 84100; 84300; 84443; 84484; 85025; 87086; 93005; 93010; 93306-TC; 97116-GP; 99285-25

== ENCOUNTER 2023-08-23 04:18 | Day surgery (SDC) | payer OTHER, MEDICARE ==
[2023-08-22 09:13] VITALS: BMI 23.9
[2023-08-23 09:14] LABS: BASO % 1.1 % (0-2.0); EOS % 2.7 % (0-4.5); HEMATOCRIT 39.8 % (32.4-45.2); HEMOGLOBIN 12.8 GM/dL (10.7-15.3); LYMPH % 19.7 % (8-40); MCHC 32.3 g/dl (32.0-36.0); MEAN CELL VOLUME 89.7 fl (80-96); MEAN PLT VOLUME 7.9 fl (7.5-11.1); MONO % 7.1 % (3.8-10.2); NEUT % 69.4 % (42.8-82.8); PLATELET COUNT 335 10^3/uL (134-434); RBC 4.43 M/mm3 (3.60-5.2); RDW 14.5 % (11.6-15.6); WHITE BLOOD COUNT 10.6 K/mm3 (4.0-10.0)
[2023-08-23 09:15] LABS: INR 1.06 (0.83-1.09); PROTHROMBIN TIME (PATIENT) 12.3 SEC (9.7-13.0)
[2023-08-23 09:54] VITALS: PULSE 85; RESP 20
[2023-08-23] MEDS ORDERED: *DONT ORDER IVPB ONE (11:00)
[2023-08-23] MEDS ORDERED: DEXTROSE 50%-WATER 25 GM/50 ML DISP.SYRIN IVPUSH ONE (12:22)
[2023-08-23] MEDS ORDERED: ACETAMINOPHEN 1000 MG/100 ML BAG IVPB ONE (14:22)
[2023-08-23 14:50] VITALS: BP 135/57; TEMP 97.9
[2023-08-23 17:26] LABS: POTASSIUM 4.9 mmol/L (3.5-5.1)
[2023-08-23 17:27] LABS: CALCIUM 8.6 mg/dL (8.5-10.1)
[2023-08-23 17:28] LABS: BLOOD UREA NITROGEN 20.3 mg/dL (7-18)
[2023-08-23 17:31] LABS: CREATININE 0.7 mg/dL (0.55-1.3)
== END 2023-08-23 14:40 | disposition home or self-care (01) ==
LOC: JRADIR 04:18
PROVIDERS: ATTEND Neurological Surgery
PROC: B01BYZZ Fluoroscopy of Spinal Cord using Other Contrast (ICD-10-PCS; principal; 2023-08-23)
DX: M54.9 Dorsalgia, unspecified (principal)
CPT/HCPCS: 36415; 62302; 62328; 72125-TC; 72128-TC; 72131-TC; 72270-TC-FY; 80048; 82962; 85025; 85610

== ENCOUNTER 2023-09-15 05:05 | Day surgery (SDC) | payer OTHER, MEDICARE ==
[2023-09-13 14:23] VITALS: BMI 24.0
[~2023-09-15 05:05] MED LIST: ACETAMINOPHEN 500 MG TABLET (FP) PO PRN
[2023-09-15] MEDS ORDERED: LIDOCAINE HCL/PF 1% SDV 5ML VIAL ONE (07:34)
[2023-09-15] MEDS ORDERED: BUPIVACAINE HCL/PF 0.75% 10 ML VIAL ONE (07:34)
[2023-09-15] MEDS ORDERED: LIDOCAINE HCL 1% PRESERVATIVE FREE - 30ML VIAL IJ ONE (11:28)
[2023-09-15] MEDS ORDERED: BUPIVACAINE HCL/PF 0.75% 10 ML VIAL NR ONE ×2 (11:28→11:34)
[2023-09-15] MEDS ORDERED: ACETAMINOPHEN 500 MG TABLET (FP) ONE (11:58)
[2023-09-15 12:05] VITALS: BP 175/75; PULSE 90; RESP 20; TEMP 98
== END 2023-09-15 13:15 | disposition home or self-care (01) ==
LOC: JASU-SURG 05:05
PROVIDERS: ATTEND Pain Medicine Pain Medicine
PROC: BR16YZZ Fluoroscopy of Lumbar Facet Joint(s) using Other Contrast (ICD-10-PCS; 2023-09-15)
PROC: 3E0T3BZ Introduction of Anesthetic Agent into Peripheral Nerves and Plexi, Percutaneous Approach (ICD-10-PCS; principal; 2023-09-15 12:30)
DX: M47.816 Spondylosis without myelopathy or radiculopathy, lumbar region (principal)
CPT/HCPCS: 76000-TC-FY

== ENCOUNTER 2023-10-20 03:59 | Day surgery (SDC) | payer OTHER, MEDICARE ==
[2023-10-12 16:58] VITALS: BMI 24.0
[~2023-10-20 03:59] MED LIST changes: -ACETAMINOPHEN 500 MG TABLET (FP) PO PRN; +BUPIVACAINE 0.75% IN DEXTROSE/PF 2ML AMPULE NR ONE; +LIDOCAINE 1% P/F 10 MG/ML VIAL INF ONE
[2023-10-20] MEDS ORDERED: BUPIVACAINE HCL/PF 0.75% 10 ML VIAL ONE (07:24)
[2023-10-20] MEDS ORDERED: LIDOCAINE HCL/PF 1% SDV 5ML VIAL ONE (07:24)
[2023-10-20] MEDS ORDERED: LIDOCAINE 1% P/F 10 MG/ML VIAL INF ONE (09:36)
[2023-10-20] MEDS ORDERED: BUPIVACAINE 0.75% IN DEXTROSE/PF 2ML AMPULE NR ONE (09:40)
[2023-10-20 09:52] VITALS: BP 128/63; PULSE 81; RESP 18; TEMP 98
[2023-10-20] MEDS ORDERED: ACETAMINOPHEN 500 MG TABLET (FP) PO PRN (11:07)
== END 2023-10-20 10:15 | disposition home or self-care (01) ==
LOC: JASU-SURG 03:59
PROVIDERS: ATTEND Pain Medicine Pain Medicine
PROC: 3E0T33Z Introduction of Anti-inflammatory into Peripheral Nerves and Plexi, Percutaneous Approach (ICD-10-PCS; 2023-10-20)
PROC: 3E0T3BZ Introduction of Anesthetic Agent into Peripheral Nerves and Plexi, Percutaneous Approach (ICD-10-PCS; principal; 2023-10-20 08:30)
DX: M47.816 Spondylosis without myelopathy or radiculopathy, lumbar region (principal)
CPT/HCPCS: 76000-TC-FY

== ENCOUNTER 2023-11-21 04:14 | Day surgery (SDC) | payer OTHER, MEDICARE ==
[2023-11-20 09:58] VITALS: BMI 25.7
[2023-11-21] MEDS ORDERED: ACETAMINOPHEN 500 MG TABLET (FP) PO PRN (08:28)
[2023-11-21] MEDS ORDERED: LIDOCAINE HCL/PF 2% SDV 5ML VIAL ONE (08:44)
[2023-11-21] MEDS ORDERED: LIDOCAINE HCL/PF 1% SDV 5ML VIAL ONE (08:45)
[2023-11-21] MEDS ORDERED: BUPIVACAINE HCL/PF 0.75% 10 ML VIAL ONE (08:45)
[2023-11-21] MEDS ORDERED: DEXAMETHASONE SOD PHOSPHATE 10 MG/1 ML VIAL ONE (08:45)
[2023-11-21] MEDS: LIDOCAINE HCL 1% PRESERVATIVE FREE - 30ML VIAL IJ ONE (11:47)
[2023-11-21] MEDS: LIDOCAINE HCL/PF 2% SDV 5ML VIAL INF ONE (11:47)
[2023-11-21] MEDS: DEXAMETHASONE SOD PHOSPHATE 10 MG/1 ML VIAL IVPUSH ONE (11:48)
[2023-11-21] MEDS: BUPIVACAINE HCL/PF 0.75% 10 ML VIAL NR ONE (11:48)
[2023-11-21 12:31] VITALS: BP 139/65; PULSE 76; RESP 20; TEMP 97.9
== END 2023-11-21 12:45 | disposition home or self-care (01) ==
LOC: JASU-SURG 04:14
PROVIDERS: ATTEND Pain Medicine Pain Medicine
PROC: 015B3ZZ Destruction of Lumbar Nerve, Percutaneous Approach (ICD-10-PCS; principal; 2023-11-21 09:45)
DX: M47.816 Spondylosis without myelopathy or radiculopathy, lumbar region (principal)
CPT/HCPCS: 76000-TC-FY; J1100

== ENCOUNTER 2023-12-29 04:31 | Day surgery (SDC) | payer OTHER, MEDICARE ==
[2023-12-26 12:10] VITALS: BMI 24.4
[2023-12-29] MEDS ORDERED: BUPIVACAINE HCL/PF 0.75% 10 ML VIAL ONE (07:31)
[2023-12-29] MEDS ORDERED: DEXAMETHASONE SOD PHOSPHATE 10 MG/1 ML VIAL ONE (07:31)
[2023-12-29] MEDS ORDERED: ACETAMINOPHEN 500 MG TABLET (FP) PO PRN (10:03)
[2023-12-29 14:57] VITALS: RESP 18
[2023-12-29] MEDS: LIDOCAINE HCL 1% PRESERVATIVE FREE - 30ML VIAL IJ ONE (16:12)
[2023-12-29] MEDS: LIDOCAINE HCL/PF 2% SDV 5ML VIAL INF ONE (16:12)
[2023-12-29] MEDS: DEXAMETHASONE SOD PHOSPHATE 10 MG/1 ML VIAL IVPUSH ONE (16:12)
[2023-12-29] MEDS: BUPIVACAINE HCL/PF 0.75% 10 ML VIAL NR ONE (16:12)
[2023-12-29 17:04] VITALS: BP 164/72; PULSE 78; TEMP 97.8
== END 2023-12-29 17:11 | disposition home or self-care (01) ==
LOC: JASU-SURG 04:31
PROVIDERS: ATTEND Pain Medicine Pain Medicine
PROC: 015B3ZZ Destruction of Lumbar Nerve, Percutaneous Approach (ICD-10-PCS; principal; 2023-12-29 15:45)
DX: M47.816 Spondylosis without myelopathy or radiculopathy, lumbar region (principal)
CPT/HCPCS: 76000-TC-FY; J1100